=== PATIENT | female | born 1985 | race African-American/Black ===

== ENCOUNTER 2019-01-10 21:38 | Emergency (ER) | payer MEDICAID ==
[~2019-01-10] VITALS: Ht 172.7 cm; Wt 130.5 kg
[~2019-01-10 21:38] MED LIST: CALC0.5C10 PO; CELL5 PO; PRED-276 PO; PROT40 PO; TACR5CAP2 PO; [UNRECOGNIZED DRUG - CODE] PO
[2019-01-11] VITALS: BP 133/70
[2019-01-11 00:09] LABS: CLARITY URINE TURBID (CLEAR); KETONES URINE 1+ (NEGATIVE); LEUKOCYTE ESTERASE URINE 2+ (NEGATIVE); NITRITE URINE NEGATIVE (NEGATIVE); OCCULT BLOOD URINE 3+ (NEGATIVE); PROTEIN URINE 2+ (NEGATIVE)
[2019-01-11 00:11] LABS: COLOR URINE BLOODY (YELLOW)
== END 2019-01-11 03:04 | disposition home or self-care (01) ==
LOC: ER 21:38
DX: N39.0 Urinary tract infection, site not specified (principal); N18.6 End stage renal disease; F17.210 Nicotine dependence, cigarettes, uncomplicated; Z94.0 Kidney transplant status
CPT/HCPCS: 81025; 99283